=== PATIENT | female | born 1980 | race Caucasian/White ===

== ENCOUNTER → 2022-06-07 09:38 | Outpatient (BNVA) | payer OTHER, SELFPAY | PROVIDERS: PCP Student in an Organized Health Care Education/Training Program; Visit Provider Physician Assistant ==

== ENCOUNTER → 2022-06-15 13:46 | Outpatient (BNVA) | payer OTHER, SELFPAY | PROVIDERS: PCP Student in an Organized Health Care Education/Training Program; Referring Provider Student in an Organized Health Care Education/Training Program; Visit Provider Physician Assistant Surgical | DX: E66.01 Morbid (severe) obesity due to excess calories (principal); Z68.41 Body mass index [BMI] 40.0-44.9, adult | CPT/HCPCS: 99202 ==